=== PATIENT | female | born 1965 | race Caucasian/White ===

== ENCOUNTER 2016-09-29 02:22 | Emergency (ER) | payer MEDICARE | END 2016-09-29 04:40 | disposition home or self-care (01) | LOC: ER 02:22 | DX: L03.114 Cellulitis of left upper limb (principal); F11.10 Opioid abuse, uncomplicated; J45.909 Unspecified asthma, uncomplicated; M86.9 Osteomyelitis, unspecified; F17.210 Nicotine dependence, cigarettes, uncomplicated; Z88.5 Allergy status to narcotic agent; Z79.899 Other long term (current) drug therapy | CPT/HCPCS: 96365; J3370 ==